=== PATIENT | female | born 1940 | race Caucasian/White ===

== ENCOUNTER 2023-04-30 12:19 | Emergency (ER) | payer MEDICARE, BC, SELFPAY ==
[2023-04-30] VITALS (23 sets, daily range): BP systolic 122–146; BP diastolic 75–89; PULSE 69–94; RESP 16; TEMP 35.3; O2SAT 94–100; BMI 22.0
--- NOTE | 2023-04-30 14:13 | CRLHL7_ITS ---
For Patients: As a result of the Century Cures Act, medical imaging exams and procedure reports are released immediately into your electronic medical record. You may view this report before your referring provider. If you have questions, please contact your health care provider. INDICATION: Abdominal pain with a history of a bowel obstruction COMPARISON: 02/22/2021, 02/19/2021 TECHNIQUE: CT of the abdomen and pelvis after the administration of intravenous contrast. Multiplanar axial, coronal, and sagittal reformats were reconstructed. Contrast: 63 mL Isovue 370 intravenously. Oral contrast was not administered. FINDINGS: The exam is obtained in nearly the late arterial phase due to the patient`s cardiovascular status. Lung bases: Minimal scarring in the lung bases. Significant right atrial dilatation. Partially visualized transvenous pacemakers. Liver: Normal. No masses. Replaced right hepatic artery. Gallbladder and biliary tree: Normal gallbladder. No biliary duct dilation. Pancreas: Normal. Spleen: Normal. Normal size. Adrenal glands: Normal. No nodules. Kidneys and bladder: Transverse lie of the right kidney. Very large exophytic cyst from the right lower pole. No calculi. No urinary tract dilation. The urinary bladder is normal. GI: Mesenteric venous congestion. Few diverticuli. No dilated segments. No abnormal bowel wall thickening or hyperenhancement. Small stool burden. The appendix is not discretely seen. Vessels: Aorta and major branches, including the mesenteric vessels: Patent. Normal caliber. No atherosclerotic plaques. IVC and tributaries: Significantly dilated IVC. Mesenteric and portal veins: Normal. Peritoneum: Trace right upper quadrant free fluid. Lymph nodes: No adenopathy. Pelvis: Physiologic appearance of the reproductive organs. Bones: No fractures. No focal bone lesions. Normal for age. IMPRESSION: 1. No bowel obstruction. 2. Severely dilated right atrium and abdominopelvic systemic veins with small abdominal ascites. There is also mesenteric venous congestion which may be related to high portal pressures due to cardiogenic hepatic congestion. Please note that all CT scans at this facility use dose modulation, iterative reconstruction, and/or weight-based dosing when appropriate to reduce radiation dose to as low as reasonably achievable. Dictated by Marlene Mtz MD @ 04/30/2023 4:21:31 PM (Electronically Signed)
--- NOTE | 2023-04-30 14:31 | ED_ITS ---
HPI - General Adult General Date Seen: 04/30/23 Chief complaint: Abdominal Pain Stated complaint: Small bowel obstruction Time Seen by Provider: 04/30/23 14:02 Source: patient Mode of arrival: ambulatory Limitations: no limitations History of Present Illness HPI narrative: Patient is an 82-year-old who presents for evaluation of crampy diffuse abdominal pain which has been there for about 36 hours. It started abruptly in the middle of the night and has been persistent since. Appetite been decreased, she has not had significant nausea no vomiting though. She has had some small soft bowel movements, does not feel she is constipated. She does have a history of obstruction, though she does not have any history of abdominal surgeries. She says this feels a little different from when she had her obstruction in that it is more diffuse, that was more focal in her upper abdomen and was associated with more nausea. She has not run fevers, no urinary symptoms, no chest pain or difficulty breathing. Related Data Home Medications Medication Instructions Recorded Confirmed alendronate 70 mg tablet 70 mg PO 04/30/23 apixaban 5 mg tablet (Eliquis) 2.5 mg PO BID 04/30/23 04/30/23 chlorthalidone 25 mg tablet 12.5 mg PO Q1D 04/30/23 04/30/23 potassium chloride 10 mEq 10 meq PO Q1D 04/30/23 04/30/23 tablet,extended release rosuvastatin 10 mg tablet 10 mg PO QPM 04/30/23 04/30/23 Previous Rx's Medication Instructions Recorded furosemide 20 mg tablet (Lasix) 20 mg PO DAILY #30 tabs 04/30/23 Allergies Allergy/AdvReac Type Severity Reaction Status Date / Time Sulfa (Sulfonamide AdvReac Mild Rash Verified 04/30/23 15:15 Antibiotics) Review of Systems Status of ROS: Reports: 10 or more systems reviewed and unremarkable except as noted in History and below PFSH PFS Social History Smoking Status: Never smoker How often do you have a drink containing alcohol: never AUDIT-C Alcohol total score: 0 Non-prescribed substance use: denies use Exam Narrative: Exam Narrative: Vital signs as noted above. In general, an alert, well-appearing patient. Head: Normocephalic, atraumatic. Eyes: Pupils are equal reactive. Extraocular movements are full. Conjunctivae are normal. ENT: Mucous membranes are moist. Throat is normal. Neck: Supple without lymphadenopathy. Heart: Regular rate and rhythm. No murmur or rub. Lungs: Clear bilaterally. No increased work of breathing, crackles or wheezes. Abdomen: Soft and nondistended. Some mild tenderness primarily in the lower abdomen without rebound guarding or rigidity. Extremities: Well perfused. No edema. No calf tenderness. Pulses intact. Neurologic: Patient is alert and oriented to person and place. Speech is fluent. Face is symmetric. Moves all extremities equally. Affect: Normal. Skin: Warm and dry. Well perfused. Const: Vital Signs, click to edit/add: Vital Signs - 24 hr 04/30/23 13:02 04/30/23 14:43 04/30/23 14:45 Temperature 95.6 F L Pulse Rate 70 73 Pulse Rate [Right Pulse Oximeter] 71 Respiratory Rate 16 Blood Pressure Blood Pressure [Ri ght Forearm] 124/85 Pulse Oximetry 99 100 [facility] 04/30/23 15:00 04/30/23 15:01 04/30/23 15:27 Temperature Pulse Rate 70 70 84 Pulse Rate [Right Pulse Oximeter] Respiratory Rate Blood Pressure 122/80 Blood Pressure [Ri ght Forearm] Pulse Oximetry 98 99 100 [facility] 04/30/23 15:28 04/30/23 15:30 04/30/23 15:32 Temperature Pulse Rate 81 75 Pulse Rate [Right Pulse Oximeter] Respiratory Rate Blood Pressure 146/80 H 140/81 H Blood Pressure [Ri ght Forearm] Pulse Oximetry 100 100 [facility] 04/30/23 15:40 04/30/23 15:45 04/30/23 16:00 Temperature Pulse Rate 94 72 70 Pulse Rate [Right Pulse Oximeter] Respiratory Rate Blood Pressure Blood Pressure [Ri ght Forearm] Pulse Oximetry 96 99 99 [facility] 04/30/23 16:01 04/30/23 16:02 04/30/23 16:15 Temperature Pulse Rate 71 73 70 Pulse Rate [Right Pulse Oximeter] Respiratory Rate Blood Pressure 143/80 H Blood Pressure [Ri ght Forearm] Pulse Oximetry 100 100 99 [facility] 04/30/23 16:30 04/30/23 16:32 04/30/23 16:45 Temperature Pulse Rate 70 70 71 Pulse Rate [Right Pulse Oximeter] Respiratory Rate Blood Pressure 135/89 Blood Pressure [Ri ght Forearm] Pulse Oximetry 99 97 97 Oxygen Delivery Me thod 04/30/23 17:00 04/30/23 17:01 04/30/23 17:15 Temperature Pulse Rate 69 70 71 Pulse Rate [Right Pulse Oximeter] Respiratory Rate Blood Pressure 132/75 Blood Pressure [Ri ght Forearm] Pulse Oximetry 94 96 98 Oxygen Delivery Me thod 04/30/23 17:30 04/30/23 17:31 Temperature Pulse Rate 71 71 Pulse Rate [Right Pulse Oximeter] Respiratory Rate Blood Pressure 145/83 H Blood Pressure [Ri ght Forearm] Pulse Oximetry 96 96 Oxygen Delivery Me thod Documenting provider has reviewed patient's vital signs: yes Course Course ED Course: Will place an IV, CT scan, labs. Diagnostic considerations include obstruction, appendicitis, cholecystitis, colitis, diverticulitis, pancreatitis, urinary tract infection among others. Labs are overall fairly unremarkable. Her white count is normal at 9.3, hemoglobin 14. Sodium is slightly low 133, potassium 3.4. Chloride is 96, CO2 is 28. BUN creatinine normal. Lactate is 1, CRP mildly elevated at 6.3. Lipase normal at 83. CT the abdomen by my review showed a large right renal cyst, significant portal venous congestion, dilated IVC. I did look with the ultrasound as well, IVC is dilated with no respiratory variation, right renal cyst is seen, gallbladder not well visualized. Final radiology read as as follows:IMPRESSION: 1. No bowel obstruction. 2. Severely dilated right atrium and abdominopelvic systemic veins with small abdominal ascites. There is also mesenteric venous congestion which may be related to high portal pressures due to cardiogenic hepatic congestion. I spoke with Dr. Zuniga about this patient, she reviewed her CT and felt that symptoms are likely related to venous mesenteric congestion from heart failure rather than a primary abdominal condition. I talked with Dr. Dasilva, on-call for Cardiology at [place]. They know this patient well, she has had an echo as recently as January, is known to have severe tricuspid regurg, as well as right heart failure. I did an EKG here, she does have a left bundle branch block of uncertain duration, last EKG here was in 2019 at which time it was normal. Troponin less than 0.01. Dr. Dasilva recommended starting her on a traditional diuretic, 20 mg of Lasix daily, I gave her 20 mg here IV and will send a prescription for her to fill tomorrow. He would like her to follow-up in clinic this coming week for recheck, check of BNP as well as potassium levels. Also, she should schedule an upcoming appointment with Dr. Donnelly with [facility]. Return to the ER for severe worsening pain, fevers, vomiting or other significant worsening. Vital Signs Vital signs: Initial Vital Signs Temperature 95.6 F L 04/30/23 13:02 Temperature Source Temporal Artery Scan 04/30/23 13:02 Pulse Rate 71 04/30/23 13:02 Pulse Rhythm Regular 04/30/23 13:02 Respiratory Rate 16 04/30/23 13:02 Blood Pressure 124/85 04/30/23 13:02 Blood Pressure Mean 98 04/30/23 13:02 Pulse Oximetry 99 04/30/23 13:02 Oxygen Delivery Method Room Air 04/30/23 13:02 Vital Signs Temperature 95.6 F L 04/30/23 13:02 Pulse Rate 71 04/30/23 13:02 Respiratory Rate 16 04/30/23 13:02 Blood Pressure 124/85 04/30/23 13:02 Pulse Oximetry 99 04/30/23 13:02 Oxygen Delivery Method Room Air 04/30/23 13:02 Temperature 95.6 F L 04/30/23 13:02 Pulse Rate 71 04/30/23 17:31 Respiratory Rate 16 04/30/23 13:02 Blood Pressure 145/83 H 04/30/23 17:31 Pulse Oximetry 96 04/30/23 17:31 Oxygen Delivery Method Room Air 04/30/23 13:02 Medical Decision Making Lab Data Labs: Lab Results 04/30/23 04/30/23 04/30/23 Range/Units 14:25 15:35 16:38 WBC 9.35 (4.50-11.00) K/uL RBC 4.52 (4.00-5.20) m/uL Hgb 14.0 (12.0-16.0) gm/dL Hct 41.3 (33.0-51.0) % MCV 91 (80-100) fL MCH 31 (26-34) pg MCHC 34 (32-36) gm/dL RDW Coeff of [place] 13.6 (11.5-15.5) % Plt Count 147 (140-440) K/uL Neut % (Auto) 74.6 H (42.0-72.0) % Lymph % (Auto) 11.7 L (20-44) % [place] % (Auto) 12.5 H (0.0-11.0) % Eos % (Auto) 0.2 (0.0-7.0) % Baso % (Auto) 0.1 (0.0-3.0) % Neut # (Auto) 7.00 (1.7-7.0) K/uL Lymph # (Auto) 1.10 (0.90-2.90) K/uL [place] # (Auto) 1.20 H (0.00-0.90) K/UL Eos # (Auto) 0.02 (0.00-0.50) K/uL Baso # (Auto) 0.01 (0.00-0.30) K/uL Abs Immat Gran (auto) 0.08 (0.00-0.30) K/uL Imm/Tot Granulo (auto) 0.9 % Sodium 133 L (135-149) mmol/L Potassium 3.4 L (3.6-5.1) mmol/L Chloride 96 (96-114) mmol/L Carbon Dioxide 28 (20-32) mmol/L Anion Gap 9 (7-15) mEq/L BUN 10 (7-30) mg/dL Creatinine 0.6 (0.5-1.5) mg/dL Estimated Creat Clear 38.75 Estimated GFR 91 ml/min Glucose 101 (60-115) mg/dL Lactate 1.0 (0.5-1.9) mmol/L Calcium 10.0 (8.4-10.6) mg/dL Total Bilirubin 1.3 (0.1-1.5) mg/dL Direct Bilirubin 0.0 (0.0-0.5) mg/dL AST 44 H (12-35) U/L ALT 22 (4-35) U/L Alkaline Phosphatase 85 (40-150) U/L Troponin I < 0.01 L (0.01-0.04) ng/mL C-Reactive Protein 6.3 H (0.5-1.0) mg/dL Total Protein 7.7 (6.0-8.3) g/dL Albumin 4.5 (3.3-5.0) g/dL Lipase 83 (23-300) U/L Urine Color Yellow (Yellow) Urine Appearance Clear (Clear) Urine pH 7.5 (5.0-8.5) Ur Specific [place] 1.015 (1.000-1.030) Urine Protein Trace A (Negative) Urine Glucose (UA) Negative (Negative) Urine Ketones 1+ A (Negative) Urine Blood Trace-intact A (Negative) Urine Nitrite Negative (Negative) Urine Bilirubin Negative (Negative) Urine Urobilinogen 0.2 (0.2-1.0) Ur Leukocyte Esterase Trace A (Negative) Urine RBC 2-5 A (0-2) Urine WBC 2-5 (0-5) Ur Squamous Epith Cells Few (None-Few) Urine Bacteria None (None) Discharge Plan Discharge Clinical Impression: Right heart failure Patient Disposition: Home, Self-Care Condition: Stable Instructions: Left-sided and Right-sided Heart Failure (ED) Additional Instructions: Lasix as prescribed, 20 mg daily. Follow-up with your regular clinic this coming week, Dr. Dasilva recommends checking a BNP as well as a potassium at that time. Call on Tuesday to schedule a future appointment with Dr. Donnelly. For severe worsening abdominal pain, vomiting, fevers etcetera, return to the emergency department. Activity Level: No Restrictions Discharge Diet: Regular Prescriptions: New furosemide [Lasix] 20 mg tablet 20 mg PO DAILY Qty: 30 2RF No Action alendronate 70 mg tablet 70 mg PO potassium chloride 10 mEq tablet extended release 10 meq PO Q1D chlorthalidone 25 mg tablet 12.5 mg PO Q1D rosuvastatin 10 mg tablet 10 mg PO QPM Eliquis 5 mg tablet 2.5 mg PO BID Follow Up/Referrals: Miley Mcelroy DO [Primary Care Provider] - Stand Alone Forms: [facility] Info Instructions
[2023-04-30 14:35] LABS: Basophils Absolute Auto 0.01 K/uL (0.00-0.30); Basophils Percent Auto 0.1 % (0.0-3.0); Eosinophils Absolute Auto 0.02 K/uL (0.00-0.50); Eosinophils Percent Auto 0.2 % (0.0-7.0); Hematocrit 41.3 % (33.0-51.0); Immature Granulocytes Abs Auto 0.08 K/uL (0.00-0.30); Immature Granulocytes Pct Auto 0.9 %; Lymphocytes Percent Auto 11.7 % (20-44); Mean Corpuscular HGB Conc 34 gm/dL (32-36); Mean Corpuscular Hemoglobin 31 pg (26-34); Mean Corpuscular Volume 91 fL (80-100); Monocytes Percent Auto 12.5 % (0.0-11.0); Neutrophils Percent Auto 74.6 % (42.0-72.0); Platelet Count* 147 K/uL (140-440); RDW Coefficient of Variation % 13.6 % (11.5-15.5); Red Blood Count 4.52 m/uL (4.00-5.20); White Blood Count* 9.35 K/uL (4.50-11.00)
[2023-04-30] MEDS: 0.9 % SODIUM CHLORIDE 1000 ml 1,000 ML IV (14:35)
[2023-04-30 14:37] LABS: Slide Review Reflex No
[2023-04-30 14:54] LABS: Albumin* 4.5 g/dL (3.3-5.0)
[2023-04-30 14:55] LABS: Chloride* 96 mmol/L (96-114); Sodium* 133 mmol/L (135-149)
[2023-04-30 14:56] LABS: Potassium* 3.4 mmol/L (3.6-5.1)
[2023-04-30 14:57] LABS: Alkaline Phosphatase* 85 U/L (40-150); Aspartate Amino Transferase* 44 U/L (12-35); Bilirubin Total* 1.3 mg/dL (0.1-1.5); Total Protein* 7.7 g/dL (6.0-8.3)
[2023-04-30 14:58] LABS: Alanine Aminotransferase* 22 U/L (4-35); Creatinine* 0.6 mg/dL (0.5-1.5); Est. Creatinine Clearance* 38.75; Estimated Glomerular Filt Rate 91 ml/min; Lipase* 83 U/L (23-300)
[2023-04-30 14:59] LABS: Anion Gap 9 mEq/L (7-15); Blood Urea Nitrogen* 10 mg/dL (7-30); Carbon Dioxide* 28 mmol/L (20-32); Glucose* 101 mg/dL (60-115)
[2023-04-30 15:02] LABS: C Reactive Protein* 6.3 mg/dL (0.5-1.0)
[2023-04-30 15:48] LABS: Appearance Urine Clear (Clear); Bilirubin Urine Negative (Negative); Blood Urine Trace-intact (Negative); Color Urine Yellow (Yellow); Glucose Urine Negative (Negative); Ketones Urine 1+ (Negative); Leukocyte Esterase Urine Trace (Negative); Nitrite Urine Negative (Negative); Protein Urine Trace (Negative); Specific Gravity Urine 1.015 (1.000-1.030); Urobilinogen Urine 0.2 (0.2-1.0); pH Urine 7.5 (5.0-8.5)
[2023-04-30 16:03] LABS: Squamous Epithelial Cell Urine Few (None-Few)
[2023-04-30] MEDS: FUROSEMIDE 10 MG/ML inj 20 MG IVP (17:26)
[2023-04-30 18:02] LABS: Troponin I* < 0.01 ng/mL (0.01-0.04)
== END 2023-04-30 17:23 | disposition home or self-care (01) ==
PROVIDERS: Emergency Provider Emergency Medicine; PCP Family Medicine
DX: I50.810 Right heart failure, unspecified (principal)
CPT/HCPCS: 36415; 74177; 80048; 80076; 81001; 83605; 83690; 84484; 85025; 86140; 96374; 99284; J1940; J7030; Q9967